=== PATIENT | female | born 1945 | race Two or more races ===

== ENCOUNTER → 2021-08-25 12:53 | Outpatient (BNVA) | payer MEDICARE, MEDICAID, SELFPAY | PROVIDERS: PCP Internal Medicine; Visit Provider Psychiatry & Neurology Neurology | DX: I67.1 Cerebral aneurysm, nonruptured (principal); R51.9 Headache, unspecified; M54.2 Cervicalgia; G89.29 Other chronic pain | CPT/HCPCS: 99202 ==

== ENCOUNTER → 2021-10-27 12:50 | Outpatient (BNVA) | payer MEDICARE, MEDICAID, SELFPAY | PROVIDERS: PCP Internal Medicine; Visit Provider Nurse Practitioner Family | DX: I67.1 Cerebral aneurysm, nonruptured (principal); M54.2 Cervicalgia; G89.29 Other chronic pain; R51.9 Headache, unspecified | CPT/HCPCS: 99212 ==

== ENCOUNTER → 2022-02-18 09:25 | Outpatient (BNVA) | payer MEDICARE, MEDICAID, SELFPAY | PROVIDERS: PCP Internal Medicine; Visit Provider Nurse Practitioner Family | DX: I67.1 Cerebral aneurysm, nonruptured (principal); M54.2 Cervicalgia; R51.9 Headache, unspecified; G89.29 Other chronic pain | CPT/HCPCS: 99212 ==

== ENCOUNTER 2024-12-14 09:07 | Outpatient (AMB) | payer MEDICARE, MEDICAID, SELFPAY ==
--- NOTE | 2024-12-14 09:27 | MHC.OFFVIS ---
Intake Visit Reasons: Diogo hand pain Hx of cva Allergies No Known Allergies Allergy (Verified 02/18/22 10:14) HPI Comments Details: 79-year-old woman who had surgery with right posterior fossa craniotomy 30 years ago at [facility]. Following surgery, she lost her hearing in the right ear had a right facial paralysis and developed seizures. The first seizure occurred one year after surgery. 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 There was also evidence of right occipital craniotomy and stable appearing encephalomalacia and gliosis throughout right cerebellar hemisphere. Multiple surgical clips with in the right posterior fossa were noted. This time she was here with complaints of headaches. She is presenting with persistent headaches occurring daily. Her physician referred her due to the severity and frequency of the headaches she is experiencing. The patient denies any concurrent seizure activity. 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 She underwent a brain scan a month ago and more recently, yesterday. Treatment for the headaches includes unspecified medication. [facility] Medical History (Updated 12/14/24 @ 09:48 by Ishaan Enriquez MD) Anxiety Depression Hepatitis C COPD (chronic obstructive pulmonary disease) Right sided weakness GERD (gastroesophageal reflux disease) Surgical History (Updated 12/14/24 @ 09:38 by Ishaan Enriquez MD) H/O eye surgery H/O craniotomy Hx of brain surgery Social History (Updated 02/18/22 @ 10:20 by Mayra Lee CMA) Household Members: Family Alcohol intake: never Patient Tobacco Use Status: Current everyday Tobacco user Review of Systems Narrative Constitutional:?No fever, chills, fatigue, weight loss, or night sweats. HEENT:? Complain of headaches Cardiovascular:?No chest pain, palpitations, orthopnea, PND, or leg swelling. Respiratory:?No cough, shortness of breath, wheezing, or hemoptysis. Gastrointestinal:?No nausea, vomiting, abdominal pain, diarrhea, or constipation. Genitourinary:?No dysuria, frequency, incontinence, or hematuria. Musculoskeletal:? Complain of daily headaches. Neurological:?No dizziness, syncope, seizures, numbness, tingling, weakness, tremors, memory loss. Psychiatric:?No anxiety, depression, mood swings, sleep disturbance, or hallucinations. Endocrine:?No heat/cold intolerance, polydipsia, polyuria, or hair/skin changes. Hematologic/Lymphatic:?No easy bruising, bleeding, or lymphadenopathy. Integumentary (Skin):?No rash, lesions, itching, or color changes. Allergic/Immunologic:?No seasonal allergies, hives, or recurrent infections. Physical Exam Neuro Other: Mental Status: Alert and oriented to person, place, and time. Normal attention. Normal spontaneous speech, fluency, and comprehension. No obvious issues with mood and memory. Affect is appropriate. Cranial Nerves: CN II: Visual pyle full to confrontation, visual acuity intact. CN III, IV, : Pupils equal, round, reactive to light and accommodation. Extraocular movements are normal. CN V: Facial sensation is normal. CN VII: Moderate right-sided peripheral type facial weakness. CN VIII: Hearing intact to bedside conversation is normal. CN IX, X: Palate elevates symmetrically. CN XI: Shoulder shrug and head turn symmetrical. CN XII: Tongue midline without atrophy or fasciculations. Motor: Bulk and tone normal in all extremities. No significant muscle weakness in arms and legs. No drift. Reflexes: Deep tendon reflexes 2+ and symmetric. Plantar response down-going bilaterally. Coordination: [id number]-[id number] and hpoa-ec-[id number] testing normal. No dysmetria. Gait and Station: No obvious gait abnormality. No ataxia or instability. Extrapyramidal: Full facial expressions and blinking. No rigidity. Movements are appropriate with no tremor or abnormality. Speech: Normal; no dysarthria or tremor. Assessment & Plan Assessment & Plan (1) Aneurysm of middle cerebral artery: Code(s): I67.1 - Cerebral aneurysm, nonruptured Category: Medical (2) Chronic headaches: Comment: likely cervicogenic tension headaches Code(s): R51.9 - Headache, unspecified; G89.29 - Other chronic pain Category: Medical Qualifiers: Headache type: unspecified Intractability: not intractable Qualified Code(s): R51.9 - Headache, unspecified; G89.29 - Other chronic pain (3) Encephalomalacia: Code(s): G93.89 - Other specified disorders of brain Category: Medical (4) S/P craniotomy: Code(s): Z98.890 - Other specified postprocedural states Category: Surgical (5) Seizure disorder: Code(s): G40.909 - Epilepsy, unspecified, not intractable, without status epilepticus Category: Medical (6) Facial neuropathy: Code(s): G51.9 - Disorder of facial nerve, unspecified Category: Medical (7) MCI (mild cognitive impairment): Code(s): G31.84 - Mild cognitive impairment of uncertain or unknown etiology Category: Medical Plan Impression: 1. R remote history of right posterior fossa craniotomy 2. Right posterior fossa area structure encephalomalacia and multiple clips related to surgical procedure 3. Moderate size left middle cerebral artery aneurysm 4. Chronic daily headaches 5. 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 Multifactorial mild cognitive impairment Recommendations: 1. Topiramate 25 mg at night 2. Review of brain scan at next visit 3. Sed rate and CRP, B12/foalte Orders: Orders EEG Routine Today G40.909 - Epilepsy, unspecified, not intractable, without status epilepticus Erythrocyte Sedimentation Rate Today G89.29 - Other chronic pain, R51.9 - Headache, unspecified Vitamin B12 and Folate Today G31.84 - Mild cognitive impairment of uncertain or unknown etiology CRP High Sensitivity Today G89.29 - Other chronic pain, R51.9 - Headache, unspecified Medications: New topiramate 25 mg orally one at night; 30 tabs 1RF Coding Level of Care Code New Pt Level 5 (37207) Diagnoses Aneurysm of middle cerebral artery I67.1 Chronic nonintractable headache, unspecified headache type R51.9; G89.29 Headache type: unspecified Intractability: not intractable Encephalomalacia G93.89 S/P craniotomy Z98.890 Seizure disorder G40.909 Facial neuropathy G51.9 MCI (mild cognitive impairment) G31.84
--- OUTSIDE RECORDS SUMMARY | 2024-12-14 09:54 | XMS_ITS | Clinical Summary ---
[facility] Address [address] [place] [address] Care Team Providers Care Hogshead Stock Clerk Name Role Phone Unavailable Primary Care Provider Unavailabl e Allergies No known active allergies Medications Medication Sig Dispensed Refills Start Date End Date Status sertraline (ZOLOFT) 50 MG tablet Take 1 tablet (50 mg total) by mouth daily. 0 Active atorvastatin (LIPITOR) tablet 10 mg Take 1 tablet (10 mg total) by mouth every evening. 0 Active aspirin EC 81 MG tablet Take 1 tablet (81 mg total) by mouth daily. 0 Active hydrOXYzine (ATARAX) 50 MG tablet Take 1 tablet (50 mg total) by mouth 3 (three) times a day as needed for itching. 0 Active latanoprost (XALATAN) 0.005 % ophthalmic solution 1 drop every night at bedtime. 0 Active Fluticasone-Umeclidi n-Vilant (Trelegy Ellipta) 200-62.5-25 MCG/ACT AEPB Inhale 1 inhalation into the lungs daily. 0 Active ibuprofen 600 MG tablet Take 1 tablet (600 mg total) by mouth every 6 (six) hours as needed for pain. 0 Active Social History Tobacco Use Types Packs/Day Years Used Date Smoking Tobacco: Every Day Cigarettes 0.3 Smokeless Tobacco: Never Alcohol Use Standard Drinks/Week Comments Never 0 (1 standard drink = 0.6 oz pur e alcohol) Sex and Gender Information Value Date Recorded Sex Assigned at Not on file Gender Identity Not on file Sexual Orientation Not on file Last Filed Vital Signs Vital Sign Reading Time Taken Comments Blood Pressure 125/61 09/08/2022 9:08 AM EDT Pulse 77 09/08/2022 9:08 AM EDT Temperature 36.2 C (97.1 F) 09/08/2022 9:08 AM EDT Respiratory Rate - - Oxygen Saturation 98% 09/08/2022 9:08 AM EDT Inhaled Oxygen Concentration - - Weight 72.1 kg (159 lb) 09/08/2022 9:08 AM EDT Height 160 cm (5' 3 ) 09/08/2022 9:08 AM EDT Body Mass Index 28.17 09/08/2022 9:08 AM EDT Plan of Treatment Health Maintenance Due Date Last Done Comments Hepatitis C Screening 1945 Depression Screening 1958 Preventative Health Evaluation 01/28/1964 Fall Risk Assessment 2011 Osteoporosis Screening (DEXA Scan) 2011 Pneumococcal Vaccine (3 of 3 - PPSV23 or PCV20) 11/10/2016 11/11/2015, 03/23/2006 DTap / Tdap / Td (2 - Td or Tdap) 09/04/2019 09/03/2009 RSV Adult > 60+ Yrs or (1 - 1-dose 75+ series) 2021 Shingrix-Zoster Vaccine (2 of 2) 01/19/2022 11/24/2021 COVID-19 Vaccine ( - 2024- season) 2024 11/24/2021, 04/06/2020, 03/16/2020 Influenza Vaccine (#1) 2024 9, 11/09/2016, 11/11/2015, Additional history exists Hepatitis B Vaccines Aged Out No long er eligible based on patient's age to complete this topic RSV Ped < 20 months Aged Out No longe r eligible based on patient's age to complete this topic
--- OUTSIDE RECORDS SUMMARY | 2024-12-14 09:54 | XMS_ITS | Clinical Summary ---
Author Organization [facility] Address [address] [place] [address] Care Team Providers Care Automobile Service Advisor Name Role Phone Ihsan Weaver MD Primary Care Provider Unavail able Allergies Active Allergy Reactions Criticality Noted Date Comments Ioversol Hives Medium 03/17/2021 Medications simvastatin (ZOCOR) 40 MG tablet Take 40 mg by mouth nightly. 02/25/2021 Active aspirin enteric coated (ECOTRIN LOW STRENGTH) 81 MG EC tablet Take 81 mg by mouth. 10/19/2020 Active sertraline (ZOLOFT) 50 MG tablet Take 50 mg by mouth daily. 12/13/2020 Active Breo Ellipta 100-25 MCG/INH inhaler INHALE 1 PUFF INTO LUNGS DAILY 02/28/2021 Active latanoprost (XALATAN) 0.005 % ophthalmic solution 05/19/2021 Active Active Problems No known active problems Social History Tobacco Use Types Packs/Day Years Used Date Smoking Tobacco: Former Cigarettes Q uit: 01/2021 Smokeless Tobacco: Never Alcohol Use Standard Drinks/Week Comments Not Currently 1 (1 standard drink = 0.6 oz pur e alcohol) Social Comments Unknown Sex and Gender Information Value Date Recorded Sex Assigned at Not on file Legal Sex Female 10:58 AM EST Gender Identity Not on file Sexual Orientation Not on file Last Filed Vital Signs Vital Sign Reading Time Taken Comments Blood Pressure 115/73 05/21/2021 12:39 PM EDT Pulse 80 05/21/2021 12:39 PM EDT Temperature 36.1 C (96.9 F) 05/21/2021 12:39 PM EDT Respiratory Rate - - Oxygen Saturation 97% 05/21/2021 12:39 PM EDT Inhaled Oxygen Concentration - - Weight 81.5 kg (179 lb 9.6 oz) 05/21/2021 12:39 PM EDT Height 160 cm (5' 3 ) 03/17/2021 11:13 AM EST Body Mass Index 31.81 03/17/2021 11:13 AM EST Plan of Treatment Health Maintenance Due Date Last Done Comments Advance Care Planning 1945 Hepatitis C Virus Screening 1945 DTaP/Tdap/Td Vaccines (1 - Tdap) 1965 Pneumococcal Vaccines 50+ (1 of 1 - PCV) 01/28/1996 Zoster (Shingles) Vaccine (1 of 2) 01/28/1996 DXA Bone Density (Females,Ag es 65 and older) 2011 RSV Vaccine 50 years and old er and Patients (1 - 1-dose 75+ series) 2021 Influenza Vaccine 09/08/2024 COVID-19 Vaccine ( - 2023-2 5 season) 2024 Hepatitis B Vaccines Aged Out No long er eligible based on patient's age to complete this topic Insurance MEDICARE PART A & B [facility] Care Teams Automobile Service Advisor Relationship Specialty Start Date End Date Ihsan Weaver MD PCP - General Internal Medicine 03/11/21
--- OUTSIDE RECORDS SUMMARY | 2024-12-14 09:54 | XMS_ITS | Data Portability ---
Author Organization [place] - [facility], Allergy Address [address] [place] [phone] Care Team Providers Care Mental Tester Name Role Phone TANIA WEINSTEIN Primary Care Provider Assessment No assessment recorded. Plan of Treatment Reminders Order Date Submit Date Provider Last Modified By Organization Details Last Modified Time Details Appointments None record ed. Lab None record ed. Referral None record ed. Procedures None record ed. Surgeries None record ed. Imaging None record ed. Medication Orders None record ed. Patient TargetsNo targets recorded. Patient InstructionsNo instructions recorded. Reason for Referral None Reported. Results Created Date Observation Date Name Description Value Unit Range Abnormal Flag Note LastModifiedBy Organization Detail LastModifiedTime 06/10/1911/29/2023 CT, neck, soft tissu e, w/ contr ast No observ ation record ed. [facility] [address] [place] [address], [id number], 06/09/2024 16:20:33 Result Notes None recorded. 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 - [facility] 5 16:15:42 Problem Notes None recorded. Medical Equipment None Reported. Allergies No known drug allergies Medications Name Sig Start Date Stop Date Status Note LastModified by Organization Details LastModified Time latanopro st 0.005 % eye drops INSTILL 1 DROP INTO LEFT EYE AT BEDTIME active Not Available Not Available No t Available ipratropi um 0.5 mg-albute rol 3 mg (2.5 mg base)/3 mL nebulizat ion soln active Medicati on ID: [id number] B rand Name: ipratrop ium-albu terol Se nd Method: E-Prescr ibed Sub s Allowed: subs OK Speci al Instruct ion: USE 3 ML VIA NEBULIZE R FOUR TIMES DAILY NEEDED FOR SHORTNES S OF BREATH OR WHEEZING Medicat ionGener icName: ipratrop ium-albu terol Not Available Not Available Not Available sucralfat e 1 gram tablet TAKE 1 TABLET BY MOUTH TWICE DAILY FOR 7 DAYS 06/09 completed Not Available Not Available Not Available omeprazol e 40 mg capsule,d elayed release TAKE 1 CAPSULE BY MOUTH DAILY 06/09 completed Not Available Not Available Not Available aspirin 81 mg tablet,de layed release TAKE 1 TABLET BY MOUTH EVERY DAY active Not Available Not Available No t Available amoxicill in 500 mg tablet TAKE 1 TABLET BY MOUTH THREE TIMES DAILY 06/09 completed Not Available Not Available Not Available simvastat in 40 mg tablet TAKE 1 TABLET BY MOUTH AT BEDTIME active Not Available Not Available No t Available acetamino phen ER 650 mg tablet,ex tended release TAKE 1 TABLET BY MOUTH THREE TIMES DAILY NEEDED active Not Available Not Available No t Available pantopraz ole 20 mg tablet,de layed release active Medicati on ID: [id number] B rand Name: pantopra zole Sen d Method: E-Prescr ibed Sub s Allowed: subs OK Speci al Instruct ion: TAKE 1 TABLET BY MOUTH DAILY Me dication GenericN abilio: pantopra zole Not Available Not Available Not Available famotidin e 20 mg tablet TAKE 1 TABLET BY MOUTH DAILY active Not Available Not Available No t Available magnesium oxide 400 mg (241.3 mg magnesium ) tablet active Medicati on ID: [id number] B rand Name: hailee george Se nd Method: E-Prescr ibed Sub s Allowed: subs OK Speci al Instruct ion: TAKE 1 TABLET BY MOUTH DAILY AT SUPPER TAKNE DAILY FOR HEADACHE MANAGEME NT-. STOP IF DIARRHEA Medicat ionGener icName: hailee m oxide Not Available Not Available Not Available cephalexi n 500 mg capsule TAKE 1 CAPSULE BY MOUTH THREE TIMES DAILY WITH MEALS FOR 7 DAYS 06/09 completed Not Available Not Available Not Available albuterol sulfate HFA 90 mcg/actua tion aerosol inhaler INHALE 2 PUFFS BY MOUTH DAILY DIRECTED active Not Available Not Available No t Available hydroxyzi ne HCl 10 mg tablet TAKE 1 TABLET BY MOUTH EVERY 8 HOURS NEEDED FOR ITCHING active Not Available Not Available No t Available sertralin e 50 mg tablet TAKE 1 TABLET BY MOUTH DAILY active Not Available Not Available No t Available nicotine 7 mg/24 hr daily transderm al patch APPLY ONE PATCH EVERY DAY active Not Available Not Available No t Available chlorhexi dine gluconate 0.12 % mouthwash RINSE WITH 15 ML BY MOUTH TWICE DAILY AFTER BRUSHING . EXPECTOR ATE AFTER RINSING. DO NOT SWALLOW. 06/09 completed Not Available Not Available Not Available diclofena c 1 % topical gel APPLY TO THE AFFECTED AREA TWICE DAILY NEEDED FOR BACK PAIN AND KNEE PAIN active Not Available Not Available No t Available Breo Ellipta 100 mcg-25 mcg/dose powder for inhalatio n active Medicati on ID: [id number] B rand Name: Breo Ellipta Send Method: E-Prescr ibed Sub s Allowed: subs OK Medic ationGen ericName : Breo Ellipta Not Available Not Available Not Available Stiolto Respimat 2.5 mcg-2.5 mcg/actua tion solution for inhalatio n active Medicati on ID: [id number] B rand Name: Stiolto Respimat Send Method: E-Prescr ibed Sub s Allowed: subs OK Medic ationGen ericName : Stiolto Respimat Not Available Not Available Not Available Trelegy Ellipta 200 mcg-62.5 mcg-25 mcg powder for inhalatio n INHALE 1 PUFF INTO THE LUNGS DAILY active Not Available Not Available No t Available Vitals Date Recorded Body height Body mass index (BMI) Body weight Provider Name and Address Organization Details Last Updated DateTime 06/09/2024 157.48 cm 30.7 kg/m2 60095.52 g Tatum Lopez [place] - [facility] 06/09/2024 15:25:17 Social History None recorded. Functional Status None recorded. Mental Status None recorded. Family History Nothing Reported. Medical History Condition Response Migraines Y Stroke Y Gynecological HistoryNo gynecological history recorded. Obstetrics History GPAL:G 0 P 0 0 0 0 Past Encounters Encounter ID Performer Location Encounter Start Date Encounter Closed Date Diagnosis/Indication Diagnosis SNOMED-CT Code Diagnosis ICD10 Code Diagnosis IMO Codes Diagnosis Note [id number] DENITA GONZALEZ MD [facility] [address] [phone] 06/09/2024 15:03:03 06/12/2024 09:27:31 Neoplasm of uncertain behavior of parotid gland 42645105 D37.030 [id number] 79-year-ol d female with a history of CVA presents today for evaluation of left-sided parotid mass. This was previously noted incidental ly on imaging in 2020 and she had a recent CT scan showing 2.5 cm superficia l nodule. I counseled her that most parotid neoplasms are benign. I did recommend FNA for confirmati on. She would like to reschedule this for a day where she can bring a support person. Health Concerns Section Related Observation LastModified by Organization Detai ls LastModified Time None Recorded Concern Status LastModified by Organization Details LastModified Time None Recorded Advance Directives Directive None Recorded Payers Insurance Date Sequence Insurance Name Policy Number Policy Small Covered Member ID Small Member ID Guarantor Name 06/09/2024 1 [place] [employer] [id number] Jazz Roberson [id number] Jazz Roberson 06/19/2024 2 [place] Jazz Roberson [id number] Jazz Roberson Notes Date Note Type Note Provider Name and Address Organization Details Recorded Time 06/09/2024 text/html ROS as noted in the HPI 79-year-old female presents today for evaluation of a left-sided parotid mass. She was previously seen here in 2021 after imaging for CVA which showed an incidental finding of 17 mm high density soft tissue lesion in the left parotid tail. Repeat clinical assessment was recommended in 6 months as the mass was not palpable at that point. She did not follow-up. More recently she was seen by Dr. Queen at [facility] for a left preauricular mass and she had an ultrasound showing 2.6 cm hypoechoic structure she had a CT scan showing 2.4 x 1.5 x 1.5 cm circumscribed enhancing lesion in the superficial lobe of the left parotid gland. She denies any pain. DENITA GONZALEZ MD [address] [place] [address], [phone], [facility] - [facility] 06/09/2024 16:17:22 OBGyn Episode No OBEpisode recorded.
--- OUTSIDE RECORDS SUMMARY | 2024-12-14 09:54 | XMS_ITS ---
Author Name [facility] Organization Unknown History of Medication Use Medication Directions Dispensed Refills Start Date End Date Stat us latanoprost (XALATAN) 0.005 % ophthalmic solution 05/19/2021 active Breo Ellipta 100-25 MCG/INH inhaler INHALE 1 PUFF INTO LUNGS DAILY 02/28/2021 active simvastatin (ZOCOR) 40 MG tablet Take 40 mg by mouth nightly. 02/25/2021 active sertraline (ZOLOFT) 50 MG tablet Take 50 mg by mouth daily. 12/13/2020 active aspirin enteric coated (ECOTRIN LOW STRENGTH) 81 MG EC tablet Take 81 mg by mouth. 10/19/2020 active Allergies Allergen Reaction Severity Comment Documented Date Source Statu s IOVERSOL HIVES 03/17/2021 [facility] active Encounters Encounter Type Encounter Reason Primary Diagnosis Location Date Ambulatory [facility] 05/21/2021 Ambulatory [facility] 03[facility]17/2021 Ambulatory [facility] 03/17/2021 Ambulatory [facility] 03/17/2021 Ambulatory Cerebral aneurys m, nonruptured [facility] 03/17/2021 Care Team Organization Name Specialty Phone Email Start Date End Da te [facility]24 [facility] 12/16/2021 09/27/19 24 [facility] TANIA WEINSTEIN Primary Care 05/21/2021 4 [facility] Tania Weinstein [facility] 03/17/2021 2
== END 2024-12-14 09:52 | disposition home or self-care (01) ==
LOC: HO.HSM 09:07
PROVIDERS: PCP Internal Medicine; Visit Provider Psychiatry & Neurology Neurology
DX: I67.1 Cerebral aneurysm, nonruptured (principal); R51.9 Headache, unspecified; G89.29 Other chronic pain; G93.89 Other specified disorders of brain; Z98.890 Other specified postprocedural states; G40.909 Epilepsy, unspecified, not intractable, without status epilepticus; G51.9 Disorder of facial nerve, unspecified; G31.84 Mild cognitive impairment of uncertain or unknown etiology
CPT/HCPCS: 99204

== ENCOUNTER → 2024-12-14 09:07 | Outpatient (BNVA) | payer MEDICARE, MEDICAID, SELFPAY | PROVIDERS: PCP Internal Medicine; Visit Provider Psychiatry & Neurology Neurology | DX: R51.9 Headache, unspecified (principal); G89.29 Other chronic pain; G93.89 Other specified disorders of brain; G40.909 Epilepsy, unspecified, not intractable, without status epilepticus; G51.9 Disorder of facial nerve, unspecified; G31.84 Mild cognitive impairment of uncertain or unknown etiology; Z86.69 Personal history of other diseases of the nervous system and sense organs; Z98.890 Other specified postprocedural states | CPT/HCPCS: 99202 ==